=== PATIENT | female | born 1990 | race Hispanic/Latino ===

== ENCOUNTER 2022-04-24 18:50 | Emergency (ER) | payer SELFPAY ==
[~2022-04-24] VITALS: Ht 160 cm; Wt 52.2 kg
[2022-04-24 18:53] VITALS: BP 100/67
== END 2022-04-24 19:28 | disposition left against medical advice (07) ==
LOC: EDH 18:50
DX: F41.9 Anxiety disorder, unspecified (principal); Z53.21 Procedure and treatment not carried out due to patient leaving prior to being seen by health care provider